=== PATIENT | female | born 1960 | race Caucasian/White ===

== ENCOUNTER 2023-09-30 12:14 | Day surgery (SDC) | payer BC ==
[~2023-09-30] VITALS: Ht 149.9 cm; Wt 68.2 kg
[2023-09-30 12:31] VITALS: BP 121/73; PULSE 106; RESP 22
[2023-09-30] MEDS ORDERED: FURO-150 PO (12:32)
[2023-09-30] MEDS ORDERED: OMEP10CA5 PO (12:32)
[2023-09-30] MEDS ORDERED: SPIR25TA5 PO (12:32)
[2023-09-30] MEDS ORDERED: TRIA15OI2 TOP (12:32)
[2023-09-30] MEDS ORDERED: LEVO100T PO (12:32)
[2023-09-30] MEDS ORDERED: MIDAZolam 1 MG/ML 5ML VIAL ONE (13:07)
[2023-09-30] MEDS ORDERED: LIDOcaine Viscous 15ml cup ONE (13:07)
[2023-09-30] MEDS ORDERED: fentaNYL/PF 50MCG/1 ML 2ML syringe ONE (13:07)
[2023-09-30 13:27] VITALS: BP 125/84; PULSE 102; RESP 17; O2SAT 98
[2023-09-30 13:34] VITALS: BP 126/83; PULSE 103; RESP 18; O2SAT 100
[2023-09-30 13:44] VITALS: BP 128/76; PULSE 98; RESP 19; O2SAT 98
[2023-09-30 13:54] VITALS: BP 125/84; PULSE 103; RESP 17; O2SAT 98
== END 2023-09-30 14:00 | disposition home or self-care (01) ==
LOC: GI LAB 12:14
PROVIDERS: ATTEND Specialist
DX: I85.00 Esophageal varices without bleeding (principal); K44.9 Diaphragmatic hernia without obstruction or gangrene; K22.2 Esophageal obstruction; K76.6 Portal hypertension; K31.89 Other diseases of stomach and duodenum; K70.31 Alcoholic cirrhosis of liver with ascites; I10 Essential (primary) hypertension; F10.90 Alcohol use, unspecified, uncomplicated; Z87.891 Personal history of nicotine dependence; Z79.899 Other long term (current) drug therapy; Z88.5 Allergy status to narcotic agent
CPT/HCPCS: 43235; J2250; J3010; J7030; Z7512; 99152; A4620